=== PATIENT | female | born 1955 ===

== ENCOUNTER 2022-04-26 04:46 | Emergency (ER) | payer BC ==
[2022-04-26 04:51] VITALS: BP 165/76
[2022-04-26 05:53] LABS: Basophils # (Auto) 0.1 K/mm3 (0.0-0.1); Basophils % (Auto) 1.1 % (0.0-1.8); Eosinophils # (Auto) 0.5 K/mm3 (0.0-0.4); Eosinophils % (Auto) 4.8 % (0.0-4.3); Hematocrit 39.2 % (30.3-42.9); Hemoglobin 13.3 gm/dl (10.1-14.3); Lymphocytes # (Auto) 3.7 K/mm3 (1.2-5.4); Lymphocytes % (Auto) 34.8 % (13.4-35.0); Mean Corpuscular HGB Conc 34 % (30-34); Mean Corpuscular Volume 87 fl (79-97); Monocytes % (Auto) 9.8 % (0.0-7.3); Platelet Count 343 K/mm3 (140-440); Red Blood Count 4.52 M/mm3 (3.65-5.03); Red Cell Distribution Width 12.8 % (13.2-15.2)
[2022-04-26 05:59] LABS: Alanine Aminotransferase 11 units/L (7-56); BUN/Creatinine Ratio 18; Blood Urea Nitrogen 16 mg/dL (7-17); Calcium 9.1 mg/dL (8.4-10.2); Hemolysis Index 1
[2022-04-26 06:02] LABS: Bacteria,Urine 1+ /HPF (Negative); Bilirubin,Urine NEG (Negative); Blood,Urine SM (Negative); Color,Urine Yellow (Yellow); Protein,Urine <15 mg/dL mg/dL (Negative); Urobilinogen,Urine < 2.0 mg/dL (<2.0)
--- NOTE | 2022-04-26 07:55 | Emergency Department Report ---
ED Female HPI - General Chief complaint: Abdominal Pain Stated complaint: BACK PAIN Source: patient, family Mode of arrival: Ambulatory Limitations: No Limitations, Language Barrier - History of Present Illness Initial comments: 66-year-old female presents ED complaining dysuria x2 days. Patient states that pain started 2 days ago with dysuria. Patient stated as the pain progresses to get worse and she began to have some low back pain. Patient stated that she noticed some frequency and urgency with urination. Patient states that pain and low back pain were more was approximately a 2 out of 10. Patient denies any fever, chills, prior steroid use, trauma or drug use. Patient is alert and oriented x3. No acute distress noted. No ill appearance noted. MD Complaint: dysuria Onset/Timin -: Gradual, days(s) Severity scale (0 -10): 2 Improves with: none Worsens with: urination Are you Now?: No - Related Data Sexually active: No Previous Rx's Medication Instructions Recorded Last Taken Type cephALEXin [Keflex] 500 mg PO Q12HR 10 Days #20 cap 04/26/22 Unknown Rx Allergies Allergy/AdvReac Type Severity Reaction Status Date / Time No Known Allergies Allergy Verified 04/26/22 04:52 ED Review of Systems ROS: Stated complaint: BACK PAIN Other details as noted in HPI Constitutional: denies: chills, fever Eyes: denies: eye pain, eye discharge, vision change ENT: denies: ear pain, throat pain Respiratory: denies: cough, shortness of breath, wheezing Cardiovascular: denies: chest pain, palpitations Endocrine: no symptoms reported Gastrointestinal: denies: abdominal pain, nausea, diarrhea Genitourinary: urgency, dysuria, frequency. denies: discharge Musculoskeletal: denies: back pain, joint swelling, arthralgia Skin: denies: rash, lesions Neurological: denies: headache, weakness, paresthesias Psychiatric: denies: anxiety, depression Hematological/Lymphatic: denies: easy bleeding, easy bruising ED Past Medical Hx - Medications Home Medications: Home Medications Medication Instructions Recorded Confirmed Last Taken Type cephALEXin [Keflex] 500 mg PO Q12HR 10 Days #20 cap 04/26/22 Unknown Rx ED Physical Exam - General Limitations: No Limitations, Language Barrier General appearance: alert, in no apparent distress - Head Head exam: Present: atraumatic, normocephalic - Eye Eye exam: Present: normal appearance - ENT ENT exam: Present: mucous membranes moist - Neck Neck exam: Present: normal inspection - Respiratory Respiratory exam: Present: normal lung sounds bilaterally. Absent: respiratory distress - Cardiovascular Cardiovascular Exam: Present: regular rate, normal rhythm. Absent: systolic murmur, diastolic murmur, rubs, gallop - GI/Abdominal GI/Abdominal exam: Present: soft, normal bowel sounds - Extremities Exam Extremities exam: Present: normal inspection - Back Exam Back exam: Present: normal inspection - Neurological Exam Neurological exam: Present: alert, oriented X3 - Psychiatric Psychiatric exam: Present: normal affect, normal mood - Skin Skin exam: Present: warm, dry, intact, normal color. Absent: rash ED Course Vital Signs 04/26/22 04:49 Temperature 98.0 F Pulse Rate 78 Respiratory 18 Rate Blood Pressure 165/76 O2 Sat by Pulse 98 Oximetry ED Medical Decision Making - Lab Data Result diagrams: 04/26/22 05:10 04/26/22 05:10 - Medical Decision Making 66-year-old female presents ED complaining dysuria x2 days. Patient states that pain started 2 days ago with dysuria. Patient stated as the pain progresses to get worse and she began to have some low back pain. Patient stated that she noticed some frequency and urgency with urination. Patient states that pain and low back pain were more was approximately a 2 out of 10. Patient denies any fever, chills, prior steroid use, trauma or drug use. Patient is alert and oriented x3. No acute distress noted. No ill appearance noted. Physical examination is unremarkable. Rechecked the patient is resting quietly quietly and comfortable and feeling better. I discussed the results of diagnostic study, my clinical impression and the plan for further treatment with the patient. Patient agrees with plan and discharge at this present time. All question addressed. I have given the patient instruction regarding a diagnosis ,expectation ,follow- up and return precaution. I explained to the patient that emergent condition may arise and to return to the ED for new worsen and any new persisting condition. I have explained the importance of following up with the primary care physician or referral physician listed below has instructed. The patient verbalized understanding of discharge instruction. Laboratory Results - last 24 hr 04/26/22 04/26/22 04/26/22 05:10 05:10 Unknown WBC 10.5 RBC 4.52 Hgb 13.3 Hct 39.2 MCV 87 MCH 29 MCHC 34 RDW 12.8 L Plt Count 343 Lymph % (Auto) 34.8 [place] % (Auto) 9.8 H Eos % (Auto) 4.8 H Baso % (Auto) 1.1 Lymph # (Auto) 3.7 [place] # (Auto) 1.0 H Eos # (Auto) 0.5 H Baso # (Auto) 0.1 Seg Neutrophils % 49.5 Seg Neutrophils # 5.2 Sodium 133 L Potassium 4.1 Chloride 96.3 L Carbon Dioxide 26 Anion Gap 15 BUN 16 Creatinine 0.9 Estimated GFR > 60 BUN/Creatinine Ratio 18 Glucose 201 H Calcium 9.1 Total Bilirubin 0.30 AST 17 ALT 11 Alkaline Phosphatase 110 Total Protein 7.4 Albumin 4.0 Albumin/Globulin Ratio 1.2 Urine Color Yellow Urine Turbidity Clear Urine pH 5.0 Ur Specific [place] 1.010 Urine Protein <15 mg/dl Urine Glucose (UA) 50 Urine Ketones Neg Urine Blood Sm Urine Nitrite Neg Urine Bilirubin Neg Urine Urobilinogen < 2.0 Ur Leukocyte Esterase Sm Urine WBC (Auto) 10.0 H Urine RBC (Auto) 1.0 U Epithel Cells (Auto) 3.0 Urine Bacteria (Auto) 1+ Critical care attestation.: If time is entered above; I have spent that time in minutes in the direct care of this critically ill patient, excluding procedure time. ED Disposition Clinical Impression: Acute urinary tract infection Disposition: 01 HOME / SELF CARE / HOMELESS Is pt being admited?: No Does the pt Need Aspirin: No Condition: Stable Instructions: Antibiotic Medicine, Adult, [id number], Urinary Tract Infection, Adult, [id number], Abdominal Pain (ED) Additional Instructions: Take medication as prescribed Return to ED for any worsening symptom May take [id number] Tylenol for pain Prescriptions: cephALEXin [Keflex] 500 mg PO Q12HR 10 Days #20 cap Referrals: [facility] [Provider Group] - 3-5 Days Forms: Work/School Release Form(ED) Time of Disposition: 07:58
== END 2022-04-26 08:00 | disposition home or self-care (01) ==
LOC: ED 04:46
DX: N39.0 Urinary tract infection, site not specified (principal)
CPT/HCPCS: 36415; 80053; 81001; 85025; 87086; 99283